=== PATIENT | male | born 1965 | race Caucasian/White ===

== ENCOUNTER 2020-12-06 10:36 | Outpatient (CLI) | payer OTHER | END 2020-12-06 23:59 | disposition home or self-care (01) | LOC: LAB 10:36 | PROVIDERS: ATTEND Specialist | DX: Z01.812 Encounter for preprocedural laboratory examination (principal); Z20.822 Contact with and (suspected) exposure to COVID-19 | CPT/HCPCS: C9803; U0003 ==

== ENCOUNTER 2020-12-11 05:32 | Day surgery (SDC) | payer OTHER ==
[2020-12-11] MEDS ORDERED: EPINEPHRINE (1:1000) 1 MG/ML AMPUL ONE (06:21)
[2020-12-11] MEDS ORDERED: BUPIVACAINE 0.5 % PF 150 MG/30 ML VIAL ONE (06:21)
[2020-12-11] MEDS ORDERED: FENTANYL PF 250MCG/5ML AMPUL ONE (08:26)
[2020-12-11] MEDS ORDERED: HYDROMORPHONE INJ 2 MG/ML DISP.SYRIN ONE (08:26)
[2020-12-11] MEDS ORDERED: MIDAZOLAM HCL 2 MG/2ML VIAL ONE (08:26)
[2020-12-11] MEDS ORDERED: SEVOFLURANE 250 ML BOTTLE IH ONE (08:37)
[2020-12-11] MEDS ORDERED: GLYCOPYRROLATE 0.2 MG/ML VIAL ONE (08:38)
[2020-12-11] MEDS ORDERED: MENTHOL/CETYLPYRD (CEPACOL) 1 LOZ LOZENGE ONE (10:59)
[2020-12-11] MEDS ORDERED: oxyCODONE/APAP (5/325 MG) 1 UDTAB TABLET ONE (11:46)
== END 2020-12-11 12:38 | disposition home or self-care (01) ==
LOC: DS 05:32
PROVIDERS: ATTEND Specialist
DX: M75.41 Impingement syndrome of right shoulder (principal); E66.01 Morbid (severe) obesity due to excess calories; M65.811 Other synovitis and tenosynovitis, right shoulder; Z79.899 Other long term (current) drug therapy
CPT/HCPCS: 29824; 29828; J0171; J1170; J2250; J3010; J3490 ×2; J7050; A4217; C1713; J0690; J2704; J2765